=== PATIENT | female | born 1930 | race Caucasian/White ===

== ENCOUNTER 2017-09-17 07:59 | Outpatient (CLI) | payer MEDICARE | END 2017-09-17 08:00 | disposition home or self-care (01) | LOC: BICMAMMO 07:59 | PROVIDERS: ATTEND Family Medicine | DX: Z12.31 Encounter for screening mammogram for malignant neoplasm of breast (principal); M81.0 Age-related osteoporosis without current pathological fracture; M85.80 Other specified disorders of bone density and structure, unspecified site | CPT/HCPCS: 77063; 77067; 77080 ==

== ENCOUNTER 2018-04-19 09:23 | Outpatient (CLI) | payer MEDICARE | END 2018-04-19 09:24 | disposition home or self-care (01) | LOC: CTENTCT 09:23 | PROVIDERS: ATTEND Otolaryngology Plastic Surgery within the Head & Neck | DX: J32.0 Chronic maxillary sinusitis (principal) | CPT/HCPCS: 70486 ==